=== PATIENT | female | born 1950 | race Caucasian/White ===

== ENCOUNTER 2017-04-15 07:17 | Inpatient (IN) | payer MEDICARE ==
[~2017-04-15] VITALS: Ht 152.4 cm; Wt 102.7 kg
[~2017-04-15 07:17] MED LIST: ALBU18HF INH; ARIP5TAB13 PO; ASCO250T2 PO; ASPI-621 PO; ASPI325T17 PO; BUPIVACAINE/PF 0.25% ONE; CALC-192 PO; CHOL3000 PO; DOCU-131 PO; DOXY100C2 PO; DULO60CA55 PO; FLUT15.812 NS; IBAN150T PO; LEVO112T4 PO; LEVO5TAB29 PO; LOSA50TA6 PO; MELO15TA24 PO; MULT-516 PO; MUPI1OIN6 TP; NYST60PO PO; OMEP-110 PO; ONDA4TAB12 PO; OXYC5CAP2 PO; TOPI50TA8 PO; TRAM50TA2 PO; ZOLM5SPR4 NS
[2017-04-15] MEDS ORDERED: TRANEXAMIC ACID 100 MG/ML, 10ML ONE ×2 (07:18→07:25)
[2017-04-15] MEDS ORDERED: BACITRACIN 50,000 UNIT ONE (07:18)
[2017-04-15] MEDS ORDERED: VANCOMYCIN PER PHARMACY MC STA (07:28)
[2017-04-15] MEDS ORDERED: VANCOMYCIN 1,400 MG in SODIUM CHLORIDE 0.9% 250 ML IV ONE (08:00)
[2017-04-15] MEDS ORDERED: PHARMACOKINETIC CONSULTATION MC ONE (08:00)
[2017-04-15] MEDS ORDERED: FENTANYL PF 100 MCG/2ML ONE ×2 (08:22→09:49)
[2017-04-15] MEDS ORDERED: MIDAZOLAM 1 MG/ML, 2ML ONE (08:22)
[2017-04-15] MEDS ORDERED: DEXAMETHASONE 4 MG/ML, 1ML ONE (09:11)
[2017-04-15] MEDS ORDERED: ROCURONIUM 10 MG/ML ONE (09:11)
[2017-04-15] MEDS ORDERED: PROPOFOL 10 MG/ML, 20ML ONE (09:11)
[2017-04-15] MEDS ORDERED: LABETALOL 5MG/ML 40ML VIAL ONE (09:11)
[2017-04-15] MEDS ORDERED: SUCCINYLCHOLINE 20 MG/ML, 10ML ONE (09:11)
[2017-04-15] MEDS ORDERED: ONDANSETRON 2MG/ML, 2ML ONE (09:11)
[2017-04-15] MEDS ORDERED: ONDANSETRON 2MG/ML, 2ML IVPush PRN (10:00)
[2017-04-15] MEDS ORDERED: ACETAMINOPHEN 325 MG TABLET PO PRN (10:00)
[2017-04-15] MEDS ORDERED: OXYcodone 5 MG/5 ML ORAL.SOL UDC PO PRN (10:00)
[2017-04-15] MEDS ORDERED: HYDROcodone/APAP 7.5-325MG/15ML UDC PO PRN (10:00)
[2017-04-15] MEDS ORDERED: FENTANYL PF 100 MCG/2ML IV PRN (10:00)
[2017-04-15] MEDS ORDERED: hydrALAzine 20 MG/ML, 1ML IV PRN (11:00)
[2017-04-15] MEDS ORDERED: LACTATED RINGERS 1,000 ML IV SCH (11:29)
[2017-04-15] MEDS ORDERED: OXYcodone 5 MG/5 ML ORAL.SOL UDC ONE (11:41)
[2017-04-15] MEDS ORDERED: HYDROmorphone 1 MG/ML, 1ML ONE (11:41)
[2017-04-15] MEDS: HYDROmorphone 1 MG/ML, 1ML IV PRN ×4 (11:44→19:43)
[2017-04-15] MEDS ORDERED: TRANEXAMIC ACID 1,000 MG in SODIUM CHLORIDE 0.9% 100 ML IVPB ONE (11:45)
[2017-04-15] MEDS ORDERED: ONDANSETRON 4 MG TABLET PO PRN (12:00)
[2017-04-15] MEDS ORDERED: DIPHENHYDRAMINE 25 MG CAPSULE PO PRN (12:00)
[2017-04-15] MEDS ORDERED: ZOLPIDEM 5MG TABLET PO PRN (12:00)
[2017-04-15] MEDS ORDERED: PROMETHAZINE 25 MG/ML, 1ML IM PRN (12:00)
[2017-04-15] MEDS ORDERED: SENNA/DOCUSATE TABLET PO PRN (12:00)
[2017-04-15] MEDS ORDERED: ONDANSETRON 2MG/ML, 2ML IV PRN (12:00)
[2017-04-15] MEDS ORDERED: PROMETHAZINE 12.5 MG SUPP PR PRN (12:00)
[2017-04-15] MEDS ORDERED: HYDROcodone/APAP 5/325 TABLET PO PRN (12:00)
[2017-04-15] MEDS: TAMSULOSIN 0.4 MG CAP.ER.24H PO SCH (12:00)
[2017-04-15] MEDS ORDERED: LORazepam 1MG TABLET PO PRN (12:00)
[2017-04-15] MEDS ORDERED: BISACODYL 10 MG SUPP PR PRN (12:00)
[2017-04-15] MEDS ORDERED: SCOPOLAMINE PATCH, 1.5MG PATCH.TD72 TD SCH (12:00)
[2017-04-15] MEDS ORDERED: MAGNESIUM HYDROXIDE 8%, 30ML UDC PO PRN (12:00)
[2017-04-15] MEDS: LABETALOL 5MG/ML, 20ML IV PRN ×2 (12:30→12:50)
[2017-04-15] MEDS: OXYcodone IR 5MG TABLET PO PRN ×2 (15:50→20:21)
[2017-04-15] MEDS: D5%-0.45% NACL 1,000 ML IV SCH ×2 (15:51→21:33)
[2017-04-15] MEDS: CEFAZOLIN PMX 1GM/50ML 50 ML IVPB SCH (17:02)
[2017-04-15] MEDS: DIAZEPAM 5 MG TABLET PO PRN (17:10)
[2017-04-15] MEDS ORDERED: ALBUTEROL SULFATE 2.5MG/0.5ML NPPB PRN (19:30)
[2017-04-15 20:14] VITALS: BP 146/76
[2017-04-16] MEDS: CEFAZOLIN PMX 1GM/50ML 50 ML IVPB SCH (00:16)
[2017-04-16] MEDS: DIAZEPAM 5 MG TABLET PO PRN ×5 (00:17→20:58)
[2017-04-16] MEDS: OXYcodone IR 5MG TABLET PO PRN ×5 (00:17→20:58)
[2017-04-16 00:59] VITALS: BP 152/72
[2017-04-16] MEDS: LEVOTHYROXINE 112 MCG TABLET PO SCH (04:52)
[2017-04-16] MEDS: ASPIRIN 81 MG TABLET EC PO SCH (04:52)
[2017-04-16 05:11] VITALS: BP 150/65
[2017-04-16 06:29] LABS: BLOOD UREA NITROGEN 12 mg/dL (7-18)
[2017-04-16] MEDS: D5%-0.45% NACL 1,000 ML IV SCH ×2 (07:33→16:47)
[2017-04-16 07:56] VITALS: BP 132/84
[2017-04-16] MEDS: ARIPIPRAZOLE 5 MG TABLET PO SCH (08:10)
[2017-04-16] MEDS: HYDROmorphone 1 MG/ML, 1ML IV PRN (08:10)
[2017-04-16] MEDS: CHOLECALCIFEROL 1,000 UNIT TABLET PO SCH (08:11)
[2017-04-16] MEDS: OMEPRAZOLE 20 MG CAPSULE.DR PO SCH (08:11)
[2017-04-16] MEDS: TAMSULOSIN 0.4 MG CAP.ER.24H PO SCH (08:12)
[2017-04-16] MEDS: DOCUSATE 100 MG CAPSULE PO SCH ×2 (08:12→20:58)
[2017-04-16] MEDS: LORATADINE 10 MG TABLET PO SCH (08:12)
[2017-04-16] MEDS: MULTIVITAMIN 1 TABLET PO SCH (08:12)
[2017-04-16] MEDS: DULOXETINE 30 MG CAPSULE.DR PO SCH (08:12)
[2017-04-16] MEDS: FLUTICASONE NASAL SPRAY 16GM NAS SCH (08:13)
[2017-04-16] MEDS: ASCORBIC ACID 500 MG TABLET PO SCH (08:14)
[2017-04-16] MEDS: KETOROLAC 30 MG/1 ML IV SCH ×2 (12:25→20:46)
[2017-04-16 14:18] VITALS: BP 131/74
[2017-04-16 19:42] VITALS: BP 128/69
[2017-04-17 00:19] VITALS: BP 128/62
[2017-04-17] MEDS: DIAZEPAM 5 MG TABLET PO PRN ×4 (01:08→13:15)
[2017-04-17] MEDS: OXYcodone IR 5MG TABLET PO PRN ×4 (01:08→13:15)
[2017-04-17] MEDS: D5%-0.45% NACL 1,000 ML IV SCH (01:10)
[2017-04-17] MEDS: KETOROLAC 30 MG/1 ML IV SCH (04:58)
[2017-04-17] MEDS: ASPIRIN 81 MG TABLET EC PO SCH (05:05)
[2017-04-17] MEDS: LEVOTHYROXINE 112 MCG TABLET PO SCH (05:05)
[2017-04-17 08:30] VITALS: BP 110/66
[2017-04-17] MEDS: TAMSULOSIN 0.4 MG CAP.ER.24H PO SCH (09:31)
[2017-04-17] MEDS: DULOXETINE 30 MG CAPSULE.DR PO SCH (09:32)
[2017-04-17] MEDS: MULTIVITAMIN 1 TABLET PO SCH (09:33)
[2017-04-17] MEDS: ARIPIPRAZOLE 5 MG TABLET PO SCH (09:33)
[2017-04-17] MEDS: OMEPRAZOLE 20 MG CAPSULE.DR PO SCH (09:33)
[2017-04-17] MEDS: DOCUSATE 100 MG CAPSULE PO SCH (09:33)
[2017-04-17] MEDS: LORATADINE 10 MG TABLET PO SCH (09:33)
[2017-04-17] MEDS: CHOLECALCIFEROL 1,000 UNIT TABLET PO SCH (09:33)
[2017-04-17] MEDS: FLUTICASONE NASAL SPRAY 16GM NAS SCH (09:34)
[2017-04-17] MEDS: ASCORBIC ACID 500 MG TABLET PO SCH (09:34)
[2017-04-17] MEDS ORDERED: ASPI-621 PO (10:01)
[2017-04-17] MEDS ORDERED: ACET500T76 PO (10:02)
[2017-04-17] MEDS ORDERED: MELO7.5T31 PO (10:03)
[2017-04-17] MEDS ORDERED: OXYC5CAP2 PO (10:04)
[2017-04-17] MEDS ORDERED: DOCU-131 PO (10:04)
[2017-04-17] MEDS ORDERED: DIAZ5TAB4 PO (10:05)
[2017-04-17 12:00] VITALS: BP 141/73
== END 2017-04-17 13:17 | disposition home or self-care (01) | DRG 470 ==
LOC: ORIP 07:17 → 4NOR 13:40 → DCLOUNGE 04-17 12:57
PROVIDERS: ADMIT Orthopaedic Surgery Adult Reconstructive Orthopaedic Surgery; ATTEND Orthopaedic Surgery Adult Reconstructive Orthopaedic Surgery
PROC: 0SRD0J9 Replacement of Left Knee Joint with Synthetic Substitute, Cemented, Open Approach (ICD-10-PCS; principal; 2017-04-15 09:00)
DX: M17.12 Unilateral primary osteoarthritis, left knee (principal)
CPT/HCPCS: 36415; 80048; 82040; 85018; C1713; J0690; J1100; J1170; J1885; J2250; J2405; J2704; J3010; J3490; Q0162; C1776; J0330; J7120

== ENCOUNTER → 2021-01-05 | Outpatient (CLI) | payer MEDICARE ==
[~2021-01-05] MED LIST changes: +ACET500T76 PO; +ASCO250T12 PO; -ASCO250T2 PO; -ASPI-621 PO; +ASPI81TA45 PO; -BUPIVACAINE/PF 0.25% ONE; +DIAZ5TAB4 PO; -DULO60CA55 PO; +DULO60CA56 PO; -IBAN150T PO; +IBAN150T15 PO; +LOSA50TA14 PO; -LOSA50TA6 PO; +MELO7.5T31 PO; +OMNIPAQUE 350 MG/ML, 150 ML BOTTLE ONE; +ONDA-89 PO; -ONDA4TAB12 PO
== END | disposition home or self-care (01) ==
LOC: RAD 11:29
PROVIDERS: ATTEND Internal Medicine Cardiovascular Disease
DX: Z01.810 Encounter for preprocedural cardiovascular examination (principal); M41.85 Other forms of scoliosis, thoracolumbar region; M51.35 Other intervertebral disc degeneration, thoracolumbar region; I35.8 Other nonrheumatic aortic valve disorders
CPT/HCPCS: 71275; 74174; 93880; Q9967

== ENCOUNTER 2021-01-30 07:51 | Inpatient (IN) | payer MEDICARE ==
[~2021-01-30] VITALS: Ht 152.4 cm; Wt 92.4 kg
[~2021-01-30 07:51] MED LIST changes: -OMNIPAQUE 350 MG/ML, 150 ML BOTTLE ONE
[2021-01-30] MEDS ORDERED: ONDANSETRON 2MG/ML, 2ML IV PRN (08:30)
[2021-01-30 08:56] LABS: BASOPHILS % (AUTO) 2 % (0-1); EOSINOPHILS % (AUTO) 2 % (1-7); LYMPHOCYTES % (AUTO) 27 % (22-44); MEAN CORPUSCULAR HGB CONC 33.4 g/dL (32.4-35.8); MONOCYTES % (AUTO) 7 % (2-9); NEUTROPHILS % (AUTO) 61 % (42-75); PLATELET COUNT 266 x10^3/uL (130-400); RED BLOOD COUNT 4.73 x10^6/uL (3.82-5.3); RED CELL DISTRIBUTION WIDTH 15.3 % (9.6-15.2)
[2021-01-30 09:00] LABS: INTERNATIONAL NORMALIZED RATIO 0.96 (0.93-1.1); PROTHROMBIN TIME 10.3 Seconds (9.6-11.5)
[2021-01-30 09:01] LABS: ALANINE AMINOTRANSFERASE 21 U/L (12-78); ALBUMIN 3.7 g/dL (3.4-5.0); CALCIUM 9.2 mg/dL (8.5-10.1); CHLORIDE 105 mmol/L (98-107); CREATININE 0.87 mg/dL (0.55-1.02)
[2021-01-30 09:03] LABS: ALKALINE PHOSPHATASE 83 U/L (45-117); BILIRUBIN,TOTAL 0.6 mg/dL (0.2-1.0); TOTAL PROTEIN 6.9 g/dL (6.4-8.2)
[2021-01-30] MEDS ORDERED: BUPR-173 PO (09:06)
[2021-01-30] MEDS ORDERED: METOPROLOL TARTRATE (09:06)
[2021-01-30] MEDS ORDERED: TOPI25CA3 PO (09:06)
[2021-01-30] MEDS ORDERED: DULO20CA45 PO (09:06)
[2021-01-30] MEDS ORDERED: EREN70AU2 SC (09:06)
[2021-01-30] MEDS ORDERED: POLY17PO5 PO (09:06)
[2021-01-30 09:08] LABS: ANION GAP 4 mmol/L (5-15)
[2021-01-30 09:10] VITALS: BP 141/64
[2021-01-30] MEDS ORDERED: PROTAMINE SULFATE 10 MG/ML, 5ML ONE (09:44)
[2021-01-30] MEDS ORDERED: VERAPAMIL 2.5 MG/ML, 2ML ONE (09:45)
[2021-01-30] MEDS ORDERED: FENTANYL PF 250 MCG/5ML ONE (09:46)
[2021-01-30] MEDS ORDERED: ONDANSETRON 2MG/ML, 2ML ONE ×2 (09:47)
[2021-01-30] MEDS ORDERED: CEFAZOLIN 1,000 MG ONE (09:47)
[2021-01-30] MEDS ORDERED: hydrALAzine 20 MG/ML, 1ML IVPush PRN (11:00)
[2021-01-30] MEDS ORDERED: LABETALOL 20 MG/4 ML IVPush PRN (11:00)
[2021-01-30] MEDS ORDERED: ACETAMINOPHEN 325 MG TABLET PO PRN (11:00)
[2021-01-30] MEDS ORDERED: HYDROcodone/APAP 5/325 TABLET PO PRN (11:00)
[2021-01-30] MEDS: POLYETHYLENE GLYCOL 17 GM PACKET PO SCH (11:00)
[2021-01-30] MEDS: ASPIRIN 81 MG TABLET EC PO SCH (11:19)
[2021-01-30] MEDS ORDERED: ASPIRIN 81 MG TABLET CHEW ONE (11:22)
[2021-01-30 12:00] VITALS: BP 127/75
[2021-01-30 18:35] VITALS: BP 129/82
[2021-01-30] MEDS: DULOXETINE 20 MG CAPSULE.DR PO SCH (20:02)
[2021-01-30] MEDS: BUPROPION SR 100 MG TABLET PO SCH (20:02)
[2021-01-30] MEDS ORDERED: TOPIRAMATE 25 MG TABLET PO SCH (21:00)
[2021-01-31 02:15] VITALS: BP 124/69
[2021-01-31 05:28] LABS: BASOPHILS % (AUTO) 1 % (0-1); EOSINOPHILS % (AUTO) 0 % (1-7); LYMPHOCYTES % (AUTO) 13 % (22-44); MEAN CORPUSCULAR HEMOGLOBIN 30.7 pg (27.0-34.8); MEAN CORPUSCULAR HGB CONC 34.1 g/dL (32.4-35.8); MONOCYTES % (AUTO) 5 % (2-9); NEUTROPHILS % (AUTO) 81 % (42-75); PLATELET COUNT 216 x10^3/uL (130-400); RED BLOOD COUNT 4.42 x10^6/uL (3.82-5.3)
[2021-01-31 05:41] LABS: CHLORIDE 102 mmol/L (98-107)
[2021-01-31 05:48] LABS: ANION GAP 6 mmol/L (5-15); CALCIUM 8.8 mg/dL (8.5-10.1); CREATININE 0.81 mg/dL (0.55-1.02)
[2021-01-31 07:47] VITALS: BP 117/70
[2021-01-31] MEDS: BUPROPION SR 100 MG TABLET PO SCH (08:01)
[2021-01-31] MEDS: DULOXETINE 20 MG CAPSULE.DR PO SCH (08:02)
[2021-01-31] MEDS: POLYETHYLENE GLYCOL 17 GM PACKET PO SCH (08:02)
[2021-01-31] MEDS: ASPIRIN 81 MG TABLET EC PO SCH (08:02)
[2021-01-31] MEDS ORDERED: LEVOCETIRIZINE 5 MG TAB PO SCH (09:00)
[2021-01-31] MEDS ORDERED: LEVOTHYROXINE 112 MCG TABLET PO SCH (09:00)
[2021-01-31] MEDS ORDERED: OMEPRAZOLE 20 MG CAPSULE.DR PO SCH (09:00)
[2021-01-31] MEDS ORDERED: ASPI81TA45 PO (15:14)
== END 2021-01-31 16:00 | disposition home or self-care (01) | DRG 266 ==
LOC: ORIP 07:51 → 5SO 11:56 → DCLOUNGE 01-31 15:49
PROVIDERS: ADMIT Internal Medicine Cardiovascular Disease; ATTEND Internal Medicine Cardiovascular Disease
PROC: B245ZZ4 Ultrasonography of Left Heart, Transesophageal (ICD-10-PCS; 2021-01-30)
PROC: B3101ZZ Fluoroscopy of Thoracic Aorta using Low Osmolar Contrast (ICD-10-PCS; 2021-01-30)
PROC: 02RF3KZ Replacement of Aortic Valve with Nonautologous Tissue Substitute, Percutaneous Approach (ICD-10-PCS; principal; 2021-01-30 10:30)
DX: I35.0 Nonrheumatic aortic (valve) stenosis (principal); Z00.6 Encounter for examination for normal comparison and control in clinical research program; I50.33 Acute on chronic diastolic (congestive) heart failure; E87.1 Hypo-osmolality and hyponatremia; Z20.822 Contact with and (suspected) exposure to COVID-19; D72.829 Elevated white blood cell count, unspecified; E03.9 Hypothyroidism, unspecified; I27.20 Pulmonary hypertension, unspecified; K21.9 Gastro-esophageal reflux disease without esophagitis; M81.0 Age-related osteoporosis without current pathological fracture; I34.0 Nonrheumatic mitral (valve) insufficiency; Z88.1 Allergy status to other antibiotic agents; Z88.8 Allergy status to other drugs, medicaments and biological substances; Z91.018 Allergy to other foods
CPT/HCPCS: 33361; 36415; 80048; 80053; 85025; 85347; 85610; 86850; 86900; 86923; 87635; 93005; 93306; 93312; 93321; 93325; 93355; C1760; C1769; C1894; G0378; J0690; J2405; J2720; J3010; Q9967

== ENCOUNTER → 2021-03-09 | Outpatient (CLI) | payer MEDICARE ==
[~2021-03-09] MED LIST changes: +BUPR-173 PO; +DULO20CA45 PO; +EREN70AU2 SC; +METOPROLOL TARTRATE; +POLY17PO5 PO; +TOPI25CA3 PO
== END | disposition home or self-care (01) ==
LOC: CVU 10:28
PROVIDERS: ATTEND Internal Medicine Cardiovascular Disease
DX: Z01.810 Encounter for preprocedural cardiovascular examination (principal); I05.1 Rheumatic mitral insufficiency; R06.02 Shortness of breath; I65.29 Occlusion and stenosis of unspecified carotid artery; I11.9 Hypertensive heart disease without heart failure
CPT/HCPCS: 93306

== ENCOUNTER → 2021-03-13 | Outpatient (CLI) | payer MEDICARE | END | disposition home or self-care (01) | LOC: RAD 16:23 | PROVIDERS: ATTEND Physical Medicine & Rehabilitation | DX: R07.81 Pleurodynia (principal) ==